=== PATIENT | male | born 1990 | race Caucasian/White ===

== ENCOUNTER 2020-08-05 19:14 | Emergency (ER) | payer OTHER ==
[~2020-08-05] VITALS: Ht 180.3 cm; Wt 124.7 kg
[2020-08-05 19:20] VITALS: Ht 180.3 cm; Wt 124.7 kg
[2020-08-05 22:44] LABS: BASOPHIL % 0.2 % (0.2-1.5); PLATELET COUNT 327 x10^3mcL (152-348); RED CELL DISTRIBUTION WIDTH 12.5 % (12.1-16.2)
[2020-08-05 23:07] LABS: CALCIUM 9.5 mg/dL (8.5-10.1); CARBON DIOXIDE 27.2 mmol/L (21-32); CHLORIDE SERUM 101 mmol/L (98-107); GFR1 > 60 mL/min; GLUCOSE SERUM 151 mg/dL (74-106); POTASSIUM SERUM 3.8 mmol/L (3.5-5.1); SODIUM SERUM 139 mmol/L (136-145)
[2020-08-05 23:11] LABS: ALBUMIN 4.4 g/dL (3.4-5.0); ALKALINE PHOSPHATASE 76 U/L (46-116); ALT/SGPT 56 U/L (16-63); AST/SGOT 16 U/L (15-37); BILIRUBIN TOTAL 0.36 mg/dL (0.20-1.00); TOTAL PROTEIN, SERUM 8.2 g/dL (6.4-8.2)
[2020-08-05 23:27] LABS: AMPHETAMINE QUAL UR NONE DETECTED (See below)
[2020-08-06 22:00] VITALS: BP 110/61
--- NOTE | 2020-08-07 00:09 | NUR ---
Called and spoke with Yon at [facility]. Throughout the day davidherminia had no beds available for placement. In AM he stated there will possibly be beds available after discharges and to fax information at 0730. Will endorse this information to AM shift and keep ER informed of any updates
== END 2020-08-06 22:00 | disposition home or self-care (01) ==
LOC: ED 19:14
PROVIDERS: Emergency Medicine
DX: F20.9 Schizophrenia, unspecified (principal); S51.811A Laceration without foreign body of right forearm, initial encounter; E11.9 Type 2 diabetes mellitus without complications; Z20.828 Contact with and (suspected) exposure to other viral communicable diseases; X78.1XXA Intentional self-harm by knife, initial encounter; Y93.89 Activity, other specified; Y92.89 Other specified places as the place of occurrence of the external cause; Y99.8 Other external cause status
CPT/HCPCS: 82962; G0480; J2001; U0003